=== PATIENT | female | born 1960 | race Caucasian/White ===

== ENCOUNTER → 2021-04-26 16:15 | Outpatient (CLI) | payer OTHER, SELFPAY ==
[2021-04-26 17:12] LABS: Add Manual Diff / Slide Review NO; Basophils Absolute Auto 100 /uL (0-100); Eosinophils Absolute Auto 200 /uL (0-450); Eosinophils Percent Auto 2.2 % (2-4); Hematocrit 39.3 % (36-46); Lymphocytes Absolute Auto 3600 /uL (1100-4500); Lymphocytes Percent Auto 46.7 % (25-40); Mean Corpuscular Hemoglobin 30.6 PG (26-34); Mean Corpuscular Volume 92.7 fL (80-100); Monocytes Absolute Auto 500 /uL (0-900); Monocytes Percent Auto 6.4 % (3-14); Neutrophils Absolute Auto 3400 /uL (1500-7000); Neutrophils Percent Auto 43.7 % (50-75); Platelet Count 306 X10^3/uL (150-400); Red Blood Cell Count 4.24 X10^6/uL (4.0-5.2); White Blood Cell Count 7.8 X10^3/uL (4.5-11.0)
[2021-04-26 17:36] LABS: Erythrocyte Sedimentation Rate 10 MM/HR (0-20)
[2021-04-26 17:56] LABS: Alanine Aminotransferase 16 IU/L (<35); Albumin 4.1 g/dL (3.5-5.0); Albumin Globulin Ratio 1.3 (1.0-2.8); Alkaline Phosphatase 70 U/L (38-126); Aspartate Aminotransferase 23 IU/L (14-36); BUN Creatinine Ratio 20.8 (6-22); Bilirubin Total 0.3 mg/dL (0.2-1.3); Blood Urea Nitrogen 15 mg/dL (7-17); C-Reactive Protein Quant < 0.5 mg/dL (<1.0); Calcium 10.2 mg/dL (8.4-10.2); Carbon Dioxide 24 mmol/L (22-32); Chloride 109 mmol/L (98-107); Estimated Glomerular Filt Rate > 60.0 mL/min (>60); Globulin 3.1 g/dL (1.7-4.1); Glucose 90 mg/dL (70-100); HEMOLYSIS < 15 (0-50); Sodium 140 mmol/L (137-145); Total Protein 7.2 g/dL (6.3-8.2)
[2021-04-26 18:24] LABS: Thyroid Stimulating Hormone 1.02 uIU/mL (0.47-4.68)
== END ==
PROVIDERS: PCP Student in an Organized Health Care Education/Training Program; Referring Provider Student in an Organized Health Care Education/Training Program; Visit Provider Student in an Organized Health Care Education/Training Program
DX: R21 Rash and other nonspecific skin eruption (principal)
CPT/HCPCS: 36415; 80053; 84443; 85025; 85651; 86140

== ENCOUNTER → 2022-10-18 12:17 | Outpatient (ROUT) | payer OTHER, SELFPAY ==
[2022-10-18 12:36] LABS: INR 0.9 (0.9-1.3); Prothrombin Time 10.5 SECONDS (10.1-12.7)
== END ==
PROVIDERS: PCP Registered Nurse; Visit Provider Registered Nurse
DX: R23.8 Other skin changes (principal)
CPT/HCPCS: 85610

== ENCOUNTER → 2022-12-26 14:00 | Outpatient (CLI) | payer BC, SELFPAY ==
--- NOTE | 2022-12-26 14:05 | DI.MG.S_ITS ---
BILATERAL DIGITAL SCREENING MAMMOGRAM 3D/2D WITH CAD: 12/26/2022 CLINICAL: Routine screening. Family history of breast cancer. Comparison is made to exams dated: 11/20/2021 mammogram, 11/20/2020 mammogram, and 11/15/2019 mammogram - Outside facility. Both breasts are heterogeneously dense, which may obscure small masses (category c / 51-75% glandular tissue). Current study was also evaluated with a Computer Aided Detection (CAD) system. There are benign calcifications in the right breast. There also are benign vascular calcifications in the left breast. Additionally, there are benign post operative findings in the left breast. No significant masses, calcifications, or other findings are seen in either breast. There has been no significant interval change. IMPRESSION: BENIGN There is no mammographic evidence of malignancy. A 1 year screening mammogram is recommended. Based on the Tyrer Cuzick model (a risk assessment model) the patient's lifetime risk is 18.6% and her 10 year risk is 8.1%. According to the ACR, ACS, and NCCN guidelines, an annual breast MRI exam along with mammogram is recommended if the patient's lifetime risk is 20% or greater. This exam was interpreted at Station ID: [id number]. NOTE: For mammograms, a report in lay terms will be sent to the patient. Approximately 15% of breast malignancies will not be visualized mammographically. In the management of a palpable breast mass, a negative mammogram must not discourage biopsy of a clinically suspicious lesion. Electronically Signed By: Jennifer mckeon/emelia:12/26/2022 15:07:01 letter sent: Normal Exam ACR BI-RADS Category 2: Benign Finding(s) 3342F
== END ==
PROVIDERS: PCP Registered Nurse; Referring Provider Registered Nurse; Visit Provider Registered Nurse
DX: Z12.31 Encounter for screening mammogram for malignant neoplasm of breast (principal)
CPT/HCPCS: 77063; 77067

== ENCOUNTER → 2023-07-22 14:53 | Outpatient (CLI) | payer BC, SELFPAY ==
--- NOTE | 2023-07-22 | DI.US.S_ITS ---
PROCEDURE: US PELVIC COMPLETE INDICATIONS: POST MENOPAUSAL BLEEDING TECHNIQUE: Real-time scanning was performed of the pelvic organs, with image documentation. Additional endovaginal scanning was necessary due to incomplete visualization of the adnexal and endometrial structures by transabdominal scanning. COMPARISON: None. FINDINGS: Uterus: Uterus is anteverted and normal in size at 8.6 x 4.6 x 5.7 cm. The myometrium is heterogenous. The endometrium measures 4 mm combined thickness. Left posterior intramural fibroid measures 1.9 x 1.8 x 1.7 cm. Left posterior intramural fibroid measures 1.3 x 1.4 x 1.3 cm. Right anterior intramural fibroid measures 1.0 x 0.9 x 1.0 cm. Ovaries: The right ovary measures 1.7 x 1.6 x 1.0 cm, with a calculated ovarian volume of 0.5 cc. The left ovary measures 1.9 x 0.9 x 1.0 cm, with a calculated ovarian volume of 0.9 cc. The ovaries have a normal sonographic appearance. Less than 12 follicles can be seen in each ovary. No adnexal masses are seen. Other: No pathologic free abdominal or pelvic fluid. IMPRESSION: Uterine fibroids. Normal endometrial thickness. Approved by: Kashif Chandra M.D. on 07/23/2023 at 17:48
== END ==
PROVIDERS: PCP Registered Nurse; Referring Provider Registered Nurse; Visit Provider Registered Nurse
DX: N95.0 Postmenopausal bleeding (principal); D25.1 Intramural leiomyoma of uterus
CPT/HCPCS: 76830; 76856; 93976

== ENCOUNTER → 2023-09-02 10:24 | Outpatient (CLI) | payer BC, SELFPAY | PROVIDERS: PCP Registered Nurse; Visit Provider Obstetrics & Gynecology | DX: R30.0 Dysuria (principal) | CPT/HCPCS: 87077; 87086; 87186 ==

== ENCOUNTER → 2024-01-13 10:51 | Outpatient (CLI) | payer BC, SELFPAY ==
--- NOTE | 2024-01-13 | DI.MG.S_ITS ---
BILATERAL DIGITAL SCREENING MAMMOGRAM 3D/2D WITH CAD: 01/13/2024 CLINICAL: Routine screening. Family history of breast cancer. Comparison is made to exams dated: 12/26/2022 mammogram - [facility], 11/20/2021 mammogram, and 11/20/2020 mammogram - Outside facility. Both breasts are heterogeneously dense, which may obscure small masses (category c / 51-75% glandular tissue). Current study was also evaluated with a Computer Aided Detection (CAD) system. There are benign calcifications in the right breast. There also are benign vascular calcifications in the left breast. Additionally, there are benign post operative findings in the left breast. No significant masses, calcifications, or other findings are seen in either breast. There has been no significant interval change. IMPRESSION: BENIGN There is no mammographic evidence of malignancy. A 1 year screening mammogram is recommended. Based on the Tyrer Cuzick model (a risk assessment model) the patient's lifetime risk is 18.1% and her 10 year risk is 8.1%. According to the ACR, ACS, and NCCN guidelines, an annual breast MRI exam along with mammogram is recommended if the patient's lifetime risk is 20% or greater. This exam was interpreted at Station ID: [id number]. NOTE: For mammograms, a report in lay terms will be sent to the patient. Approximately 15% of breast malignancies will not be visualized mammographically. In the management of a palpable breast mass, a negative mammogram must not discourage biopsy of a clinically suspicious lesion. Electronically Signed By: Jennifer mckeon/emelia:01/13/2024 16:23:35 letter sent: Normal Exam ACR BI-RADS Category 2: Benign Finding(s) 3342F
== END ==
LOC: MAMMO 10:53
PROVIDERS: PCP Registered Nurse; Referring Provider Registered Nurse; Visit Provider Registered Nurse
DX: Z12.31 Encounter for screening mammogram for malignant neoplasm of breast (principal); Z80.3 Family history of malignant neoplasm of breast; R92.333 Mammographic heterogeneous density, bilateral breasts
CPT/HCPCS: 77063; 77067

== ENCOUNTER 2024-06-08 13:10 | Observation (INO) | payer BC, SELFPAY ==
[2024-06-08] VITALS (15 sets, daily range): BP systolic 136–183; BP diastolic 70–111; PULSE 45–67; RESP 14–21; TEMP 36.8–37.2; O2SAT 92–99; BMI 29.9
--- NOTE | 2024-06-08 13:26 | EKG_ITS ---
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 Electronically Signed On 06-08-2024 14:38:02 PDT by Himanshu Alvares
--- NOTE | 2024-06-08 13:26 | DI.RAD.S_ITS ---
PROCEDURE: XR CHEST 1V INDICATIONS: chest pain TECHNIQUE: One view of the chest was acquired. COMPARISON: None. FINDINGS: Surgical changes and devices: None. Lungs and pleura: Low lung volumes. Possible mild left base opacity. No drainable effusions. Mediastinum: Heart size is at the upper limit of normal. Bones and chest wall: Rightward thoracolumbar scoliosis IMPRESSION: Low lung volumes. Possible mild left lung base opacity representing airspace disease or atelectasis. Consider future imaging surveillance to assess for resolution. Dictated by: Frank Gray M.D. on 06/08/2024 at 13:50 Approved by: Frank Gray M.D. on 06/08/2024 at 13:50
[2024-06-08] MEDS: ASPIRIN 81 MG CHEW TAB 324 MG PO (14:14)
[2024-06-08 14:26] LABS: Add Manual Diff / Slide Review NO; Basophils Absolute Auto 100 /uL (0-100); Basophils Percent Auto 1.2 % (0-2); Eosinophils Absolute Auto 100 /uL (0-450); Eosinophils Percent Auto 1.9 % (2-4); Hematocrit 40.2 % (36-46); Hemoglobin 13.7 g/dL (12.0-16.0); Lymphocytes Absolute Auto 3200 /uL (1100-4500); Lymphocytes Percent Auto 51.3 % (25-40); Mean Corpuscular HGB Conc 34.2 % (30-36); Mean Corpuscular Hemoglobin 31.2 PG (26-34); Mean Corpuscular Volume 91.4 fL (80-100); Monocytes Absolute Auto 400 /uL (0-900); Monocytes Percent Auto 6.2 % (3-14); Neutrophils Absolute Auto 2400 /uL (1500-7000); Neutrophils Percent Auto 39.4 % (50-75); Platelet Count 292 X10^3/uL (150-400); Red Cell Distribution Width 12.8 % (11.6-14.8); White Blood Cell Count 6.1 X10^3/uL (4.5-11.0)
[2024-06-08 14:35] LABS: Prothrombin Time 11.5 SECONDS (9.4-12.5)
[2024-06-08 14:37] LABS: PTT Partial Thromboplastin Tim 42 SECONDS (25.1-36.5)
[2024-06-08 14:54] LABS: Alanine Aminotransferase 25 IU/L (<35); Albumin 4.5 g/dL (3.5-5.0); Albumin Globulin Ratio 1.5 (1.0-2.8); Alkaline Phosphatase 100 U/L (38-126); Aspartate Aminotransferase 26 IU/L (14-36); BUN Creatinine Ratio 16.1 (6-22); Bilirubin Total 0.8 mg/dL (0.2-1.3); Blood Urea Nitrogen 10 mg/dL (7-17); Calcium 10.2 mg/dL (8.4-10.2); Carbon Dioxide 25 mmol/L (22-32); Chloride 107 mmol/L (98-107); Creatine Kinase 55 U/L (30-135); Estimated Glomerular Filt Rate > 60 mL/min (>60); Glucose 96 mg/dL (80-110); HEMOLYSIS < 15 (0-50); Lipase 77 U/L (23-300); Magnesium 2.1 mg/dL (1.6-2.3); Potassium 3.9 mmol/L (3.4-5.1); Sodium 141 mmol/L (137-145); Total Protein 7.5 g/dL (6.3-8.2)
[2024-06-08 15:03] LABS: NT-proBNP (BNP-Adult 18+) 40 pg/mL (<125)
[2024-06-08 15:09] LABS: Troponin I < 0.012 ng/mL (0.01-0.034)
--- NOTE | 2024-06-08 16:19 | ED_ITS ---
HPI - Chest Pain General Chief Complaint: Chest Pain Stated Complaint: from [facility] IV for BP meds Time Seen by Provider: 06/08/24 13:15 Source: patient Mode of arrival: Ambulatory Limitations: no limitations History of Present Illness HPI narrative: Patient is a 63-year-old female. History of hypertension and high cholesterol. Recent diagnosis of diabetes started on medication. Was seeing her primary doctor today because of some elevated blood pressure. She actually lives in [facility] and comes to the [facility] to see her doctors and also her kids. She states she has been checking her blood pressure recently they have been elevated in the 160s to 190s range. She also reports that she has had some chest pressure specifically with exertion. States it is not every time that she exerts herself but occasionally. She was currently not having discomfort. She talked with her primary doctor today in the office. Her blood pressure was elevated. Given her symptoms she was sent to the emergency department for further evaluation. Related Data Home Medications Medication Instructions Recorded Confirmed atorvastatin 10 mg tablet 10 mg PO DAILY 09/02/23 09/02/23 citalopram 20 mg tablet 20 mg PO DAILY 09/02/23 09/02/23 Previous Rx's Medication Instructions Recorded estradiol 2 mg (7.5 mcg/24 hour) 1 vag ring vaginal [id number] #1 ea 09/02/23 vaginal ring (Estring) Allergies Allergy/AdvReac Type Severity Reaction Status Date / Time No Known Drug Allergies Allergy Unverified 09/02/23 09:29 Review of Systems Review of Systems ROS Unobtainable: All systems reviewed & are unremarkable except as noted in HPI and below Patient History Medical History Bilharzia Measles Malaria Hepatitis Chicken pox Family history of myelodysplasia of spinal cord Anemia (~1981) Fibroids (~1987) Hemorrhoid (~1997) Diabetes mellitus (~2000) Surgical History (Updated 10/05/23 @ 18:39 by Ansley Machado) History of lumpectomy History of myomectomy Family History (Updated 10/05/23 @ 18:40 by Ansley Machado) Mother Cancer Social History Smoking Status: Never smoker Smoking Status: Never smoker Substance Use Type: does not use Exam Initial Vital Signs Initial Vital Signs: Vital Signs Temperature 98.3 F 06/08/24 13:19 Pulse Rate 53 L 06/08/24 13:19 Respiratory Rate 18 06/08/24 13:19 Blood Pressure 171/77 H 06/08/24 13:19 Pulse Oximetry 97 06/08/24 13:19 Oxygen Delivery Method Room Air 06/08/24 13:19 Const General: cooperative and No ill appearing HENMT Head: normal to inspection and normocephalic Resp Effort & Inspection: normal respiratory effort Auscultation: clear to auscultation bilaterally Cardio Rate: regular rate Rhythm: regular rhythm GI Inspection: normal to inspection and non-distended Skin General: no rashes or lesions noted Neuro General: patient alert, patient awake and moves all extremities Extrem General: capillary refill normal Scores HEART Score Heart Score history: Moderately Suspicious Heart Score EKG: Non-Specific repolarization disturbance Heart Score Age: 45-64 years old Heart Score risk factors: > 3 risk factors or hx of atherosclerotic disease Heart Score troponin: < or = to normal limit Heart Score Total: 5 Course Orders Ordered: ED Orders 06/08/24 13:26 XR chest 1V Stat EKG-12 Lead Stat 06/08/24 14:15 Complete Blood Count AUTO DIFF Stat Comprehensive Metabolic Panel Stat Lipase Stat Magnesium Stat NT-proBNP (BNP-Adult 18+) Stat PTT Partial Thromboplastin Avinash Stat Prothrombin Time INR Stat Troponin & CK Cardiac Panel Stat 06/08/24 17:14 Consult to Physician Stat Discontinued Medications Aspirin (Aspirin 81 Mg Chew Tab) 324 mg PO NOW ONE Stop: 06/08/24 13:27 Last Admin: 06/08/24 14:14 Dose: 324 mg Documented By: CANDELARIA Vital Signs Vital signs: Vital Signs - 8 hr 06/08/24 13:19 06/08/24 14:27 06/08/24 15:12 Temperature 98.3 F Pulse Rate 53 L 50 L 64 Respiratory Rate 18 16 Blood Pressure 171/77 H 167/80 H Pulse Oximetry 97 99 97 Oxygen Delivery Method Room Air Room Air 06/08/24 15:13 06/08/24 15:13 06/08/24 15:30 Temperature Pulse Rate 59 L 48 L Respiratory Rate 17 18 Blood Pressure 183/85 H Pulse Oximetry 98 94 Oxygen Delivery Method 06/08/24 15:31 06/08/24 15:31 06/08/24 16:00 Temperature Pulse Rate 46 L 45 L Respiratory Rate 20 14 Blood Pressure 153/70 H Pulse Oximetry 95 95 Oxygen Delivery Method Room Air 06/08/24 16:01 06/08/24 16:01 06/08/24 16:30 Temperature Pulse Rate 48 L 52 L Respiratory Rate 14 18 Blood Pressure 139/79 Pulse Oximetry 96 94 Oxygen Delivery Method 06/08/24 16:31 06/08/24 16:31 06/08/24 17:00 Temperature Pulse Rate 59 L 51 L Respiratory Rate 18 17 Blood Pressure 158/85 H Pulse Oximetry 94 Oxygen Delivery Method 06/08/24 17:01 06/08/24 17:01 Temperature Pulse Rate 52 L Respiratory Rate 19 Blood Pressure 136/90 Pulse Oximetry 94 Oxygen Delivery Method MDM - Chest Pain Lab Data Attestation: I reviewed the patient's lab results. 06/08/24 14:15 06/08/24 14:15 Labs: Lab Results 06/08/24 Range/Units 14:15 WBC 6.1 (4.5-11.0) X10^3/uL RBC 4.40 (4.0-5.2) X10^6/uL Hgb 13.7 (12.0-16.0) g/dL Hct 40.2 (36-46) % MCV 91.4 (80-100) fL MCH 31.2 (26-34) PG MCHC 34.2 (30-36) % RDW 12.8 (11.6-14.8) % Plt Count 292 (150-400) X10^3/uL Neut % (Auto) 39.4 L (50-75) % Lymph % (Auto) 51.3 H (25-40) % Knott % (Auto) 6.2 (3-14) % Eos % (Auto) 1.9 L (2-4) % Baso % (Auto) 1.2 (0-2) % Neut # (Auto) 2400 (0162-5053) /uL Lymph # (Auto) 3200 (4505-9044) /uL Knott # (Auto) 400 (0-900) /uL Eos # (Auto) 100 (0-450) /uL Baso # (Auto) 100 (0-100) /uL PT 11.5 (9.4-12.5) SECONDS INR 1.0 (0.9-1.3) APTT 42 H (25.1-36.5) SECONDS Sodium 141 (137-145) mmol/L Potassium 3.9 (3.4-5.1) mmol/L Chloride 107 (98-107) mmol/L Carbon Dioxide 25 (22-32) mmol/L BUN 10 (7-17) mg/dL Creatinine 0.62 (0.52-1.04) mg/dL Estimated GFR > 60 (>60) mL/min BUN/Creatinine Ratio 16.1 (6-22) Glucose 96 (80-110) mg/dL Calcium 10.2 (8.4-10.2) mg/dL Magnesium 2.1 (1.6-2.3) mg/dL Total Bilirubin 0.8 (0.2-1.3) mg/dL AST 26 (14-36) IU/L ALT 25 (<35) IU/L Alkaline Phosphatase 100 (38-126) U/L Total Creatine Kinase 55 (30-135) U/L Troponin I < 0.012 (0.01-0.034) ng/mL NT-Pro-B Natriuret Pep 40 (<125) pg/mL Total Protein 7.5 (6.3-8.2) g/dL Albumin 4.5 (3.5-5.0) g/dL Globulin 3.0 (1.7-4.1) g/dL Albumin/Globulin Ratio 1.5 (1.0-2.8) Lipase 77 (23-300) U/L Imaging Data Chest x-ray: Radiologist's Impression: PROCEDURE: XR CHEST 1V INDICATIONS: chest pain TECHNIQUE: One view of the chest was acquired. COMPARISON: None. FINDINGS: Surgical changes and devices: None. Lungs and pleura: Low lung volumes. Possible mild left base opacity. No drainable effusions. Mediastinum: Heart size is at the upper limit of normal. Bones and chest wall: Rightward thoracolumbar scoliosis IMPRESSION: Low lung volumes. Possible mild left lung base opacity representing airspace disease or atelectasis. Consider future imaging surveillance to assess for resolution. ECG Data Interpretation: Sinus bradycardia Ventricular rate of 56 Normal axis Normal QRS Nonspecific ST T wave changes MDM Narrative Medical decision making narrative: Asymptomatic. Chest x-ray is unremarkable. Nonspecific changes on the EKG. Negative troponin. Heart score 5. Plan will be to admit to the hospital for further risk stratification testing. Discussed the case with Dr. Arellano he was on-call for the patient's primary doctor who will admit for further evaluation. Patient is in agreement with admission to the hospital. Discharge Plan Departure Patient Disposition: Admitted as Observation Clinical Impression: Chest pain, Hypertension Admit Date/Time: 06/08/24 17:15 Admit Provider: Dontae Arellano
--- NOTE | 2024-06-08 18:11 | PC.NURSE ---
Addendum entered by Jovany Correa R.N. 06/08/24 19:28: Updated patient that she can eat tonight (no caffeine), but nothing to eat or drink after midnight. Patient up in chair without complaints. at bedside, production supervisor off shift RN assuming care. Original Note: Patient brought from ER to room 212 via WC. Patient oriented to room and call light. Patient declines hospital gown at this time, and would like to sit up in recliner chair. Patient alert and oriented, denies pain. Sinus bradycardia on telemetry. Dr. Arellano paged to notify him his patient has arrived to room. A waiting orders. Call light within reach, patient moving around independently in room without complaint.
--- NOTE | 2024-06-08 19:04 | DI.ECHO.S_ITS ---
[facility]---------+ [facility] : : [address] : : [place] : : [id number] : : Phone: [phone] Echocardiogram Report + + :Name: XIOMARA HANSON Study Date: 06/09/2024 Height: 65 in : [facility] Reading[facility]: Weight: 180 lb: : Gender: Female BSA: 1.9 m2 : :: 1960 Age: 63 yrs : :Reason For Study: EXERTIONAL CHEST PAIN : :Ordering Physician: KYLIE, : :NATALIIA Clayton Performed By: Priti Wray : :Referring: NATALIIA ESPINAL : + + Interpretation Summary Sinus bradycardia. Normal LV size and wall thickness. Normal wall motion and LV systolic function. Ejection fraction is 55-60%. Normal chamber sizes. No significant valvular abnormalities. The transverse and descending portions of the aorta are characterized by significant atherosclerotic plaque. No prior study available for comparison. Procedure: A two-dimensional transthoracic echocardiogram with color flow and Doppler was performed. The study quality was technically adequate. There is no prior echocardiogram noted for this patient. The patient was in sinus bradycardia with heart rates between 53-60 bpm during the exam. Left Ventricle: The left ventricle is normal in size and wall thickness. The ejection fraction is estimated to be 50-55%. Right Ventricle: The right ventricle is normal in size and function. Atria: The left atrial size is normal. Right atrial size is normal. There is no Doppler evidence for an interatrial shunt. Mitral Valve: The mitral valve is normal in structure and function. There is trace mitral regurgitation. Aortic Valve: The aortic valve is trileaflet. The aortic valve opens well. There is no aortic valve stenosis. No aortic regurgitation is present. Tricuspid Valve: The tricuspid valve is normal in structure and function. There is trace tricuspid regurgitation. The right ventricular systolic pressure is estimated to be at least 23 mmHg based on an estimated right atrial pressure of 3 mm Hg. Pulmonic Valve: The pulmonic valve leaflets are thin and pliable; valve motion is normal. There is no pulmonic valvular regurgitation. Great Vessels: The aortic root is normal size. The dimensions of the ascending aorta are normal. The IVC is of normal diameter and collapses greater than 50% with a sniff. This suggests a low right atrial pressure of 3 mm Hg. Pericardium/ Pleura There is no pericardial effusion. There is no pleural effusion. MMode/2D Measurements & Calculations LVIDd: 5.2 cm LVOT diam: 2.1 cm LVIDs: 3.5 cm Ao root diam: 3.1 cm FS: 32.3 % asc Aorta Diam: 3.4 cm EPSS: 1.4 cm Ao Arch Diam (Prox Trans): 2.9 cm IVSd: 0.87 cm LVPWd: 0.69 cm LV leslie. diameter/BSA (cm/m^2): 2.8 LV sys. diameter/BSA (cm/m^2): 1.9 LA A2 area: 17.0 cm2 RA long axis: 5.1 cm LA A4 area: 14.3 cm2 RA area: 16.3 cm2 LA length (vol): 4.6 cm RA vol: 44.1 ml LA vol: 45.2 ml RA : 23.3 ml/m2 LA vol index: 23.9 ml/m2 IVC diam: 0.92 cm RVD1 (basal): 3.3 cm TAPSE: 1.7 cm Doppler Measurements & Calculations Ao V2 max: 98.7 cm/sec LVOT Max Didier: 83.9 cm/sec Ao V2 mean: 69.4 cm/sec LV V1 max P.8 mmHg Ao max P.9 mmHg LV V1 VTI: 19.4 cm Ao mean P.1 mmHg LOTTIE(I,D): 3.6 cm2 Ao V2 VTI: 19.0 cm LOTTIE(V,D): 3.0 cm2 sev ratio: 1.0 LOTTIE indexed to BSA (cm^2/m^2): 1.9 MV E max didier: 66.5 cm/sec TR max didier: 225.4 cm/sec MV A max didier: 47.6 cm/sec TR max P.3 mmHg MV E/A: 1.4 PA V2 max: 90.4 cm/sec Med Peak E' Didier: 7.9 cm/sec PA V2 mean: 68.8 cm/sec E/E' med: 8.4 PA mean P.1 mmHg Lat Peak E' Didier: 9.5 cm/sec PA pr(Accel): 48.2 mmHg E/E' lat: 7.0 E/e' average: 7.7 MV dec time: 0.17 sec SV([facility]): 69.2 ml Electronically signed by: Angelica Burns M.D. on Reading Physician:06/09/2024 09:54 AM
--- NOTE | 2024-06-08 19:04 | DI.NM.S_ITS ---
PROCEDURE: NM EXERCISE TREADMILL NON NUC COMPARISON: None. INDICATIONS: Exertional chest pain FINDINGS: The patient exercised for 8 minutes and 46 seconds reaching 93% of maximum predicted heart rate. Borderline hypertensive response to exercise (max BP 200/98mmHg). 8.8 METs, BERTIN -32%. Non-specific ST changes at rest and mild horizontal ST depressions in the inferior and anterolateral leads, suggesting probably ischemia. Patient had minimal chest pain that started around 2:30PM that did not intensify or affect patient's ability to exercise. No significant ectopy present. IMPRESSION: Probably abnormal treadmill ECG only stress test with good exercise tolerance (8.8 METs, BERTIN -32%). Non-specific ST changes at rest and mild horizontal ST depressions in the inferior and anterolateral leads, suggesting probably ischemia. Patient had minimal chest pain that started around 2:30PM that did not intensify or affect patient's ability to exercise. Correlate clinically to consider treadmill nuclear stress or cardiology consult. Dictated by: Nany Olivier MD on 06/09/2024 at 13:05 Approved by: Nany Olivier MD on 06/09/2024 at 13:12
[2024-06-08 19:51] LABS: Troponin I < 0.012 ng/mL (0.01-0.034)
[2024-06-08] MEDS: METFORMIN XR 500 MG TABLET 1000 MG PO (21:50)
[2024-06-09] VITALS: BP 128/69; PULSE 57; RESP 19; O2SAT 99
[2024-06-09 06:00] VITALS: BP 136/77; PULSE 54; RESP 18; O2SAT 95
[2024-06-09 06:19] LABS: Troponin I < 0.012 ng/mL (0.01-0.034)
[2024-06-09 09:31] VITALS: BP 121/62; PULSE 60; RESP 17; TEMP 37.1; O2SAT 94
[2024-06-09] MEDS: CITALOPRAM 10 MG TABLET 20 MG PO (10:20)
[2024-06-09 10:21] VITALS: BP 121/62; PULSE 60
[2024-06-09] MEDS: ATORVASTATIN 20 MG TABLET PO (10:21)
[2024-06-09] MEDS: ACETAMINOPHEN 325 MG TABLET 650 MG PO (10:21)
[2024-06-09] MEDS: LOSARTAN 25 MG TABLET PO ×2 (10:21→15:02)
[2024-06-09 12:00] VITALS: BP 169/83; PULSE 76; RESP 16; TEMP 37.2; O2SAT 93
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
--- NOTE | 2024-06-09 13:58 | EKG_ITS ---
[address] [address] Test Date: 2024-06-09 Pat Name: Latasha Rock Department: 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
[2024-06-09 15:02] VITALS: BP 169/83; PULSE 76
--- NOTE | 2024-06-09 15:15 | CM.DANOTE ---
DCP Cont. Reviewed EMR and team rounds for status updates. Did not meet with pt at bedside due to triaging needs. Pt lives independently at baseline, lives primarily in [place], however comes to [place] to visit her family and see her doctors. She will d/c back to her family's home, they will also provide for transportation. No needs have been identified for assistance at this time. Payor: [facility] Out of [facility] PCP: Dr. Flory Sinclair Pt is a 63 year-old F who was sent to the ED from her PCP's office visit after she was found to have high blood pressure and chest tightness with exertion. She has a PMH of hypertension and high cholesterol, as well as a new diabetes dx. She was asymptomatic upon presenting to the ED, chest x-ray was negative, and labs were unremarkable. Pt was placed in OBS for further cardiac monitoring, and a stress test was ordered, this was completed today. Unfortunately, the incorrect stress test was used, they will repeat again tomorrow (06/10). If stable, she will d/c home w/family. DCP will continue to follow and assist with any final d/c recommendations or needs. Discharge Planning/Care Management CM Discharge Assessment Start: 06/09/24 15:13 Freq: Status: Active Protocol: Document 06/09/24 15:13 DPL (Rec: 06/09/24 15:15 DPL [id number]) Discharge Planning Assessment Assigned Low Vision Therapist COLTON Patterson Advance Directives? No History Provided By Patient,Medical Record Has Patient been admitted in last 30 No days? Prior Living Arrangements House Household Members spouse Type of transporation used prior to Drives own vehicle admit Independent with ADL's Yes Is patient alert and oriented? Yes Caregiver for Another No Comment N/A Comment No anticipated d/c needs at this time. Barriers to Discharge No Discharge Plan Home Transportation Arrangement Spouse Referrals Initiated None needed Whiteboard Updated in Patient Room with Yes name and ext. # of Low Vision Therapist Review Status In Process Please Provide Date Initial DC 06/09/24 Assessment Was Performed
--- NOTE | 2024-06-09 18:33 | PC.NURSE ---
Pt discharged home at 1800, ambulated off floor accompanied by hospital staff. IV removed, tele d/c'd, discharge teaching completed including new medications, follow up appointments and worsening symptoms. Patient left the floor with all belongings.
== END 2024-06-09 18:40 | disposition home or self-care (01) ==
LOC: ED 17:14 → AC 17:16
PROVIDERS: Admitting Provider Family Medicine; Emergency Provider Emergency Medicine; PCP Registered Nurse; Referring Provider Emergency Medicine; Visit Provider Family Medicine
DX: R07.9 Chest pain, unspecified (principal); R00.2 Palpitations; E11.9 Type 2 diabetes mellitus without complications; I10 Essential (primary) hypertension; E78.5 Hyperlipidemia, unspecified
CPT/HCPCS: 36415; 71045; 80053; 82550; 83690; 83735; 83880; 84484; 85025; 85610; 85730; 93005; 93017; 93306; 99284; G0378

== ENCOUNTER → 2025-03-01 15:48 | Outpatient (CLI) | payer BC, SELFPAY ==
[2024-06-08 17:31] VITALS: BMI 29.9
--- NOTE | 2025-03-01 15:51 | DI.MG.S_ITS ---
MM screening mammo BI: 03/01/2025. BI-RADS: 2 CLINICAL: 64-year old female for bilateral screening mammogram. Tyrer-Cuzick lifetime risk of 7.7%. No personal or first-degree family history of breast cancer. The patient had a prior right breast biopsy. PRIOR EXAMS 01/13/2024, 12/26/2022. MAMMOGRAPHY TECHNIQUE: 2D and 3D (tomosynthesis) digital mammographic views obtained, with additional images as needed for full coverage. Current study was also evaluated with a Computer Aided Detection (CAD) system. DENSITY C. The breasts are heterogeneously dense, which may obscure small masses. MAMMOGRAPHY FINDINGS Right: Benign-appearing calcification noted on the right. There are no suspicious masses, calcifications, or other findings in the breast. No significant change from comparison. Left: Benign-appearing calcification and post-surgical changes noted on the left. There are no suspicious masses, calcifications, or other findings in the breast. No significant change from comparison. IMPRESSION: * No evidence of malignancy with benign findings. RECOMMENDATIONS Bilateral * Annual screening mammography. OVERALL ASSESSMENT CATEGORY BI-RADS-2: Benign. The [employer] recommends annual screening mammography beginning at age 40 for women with average risk of breast cancer. ELECTRONICALLY SIGNED: Jennifer Armstrong M.D. on 03/02/2025 at 09:16:22 AM PT Interpreting Station ID: [id number]
== END ==
PROVIDERS: PCP Registered Nurse; Referring Provider Registered Nurse; Visit Provider Registered Nurse
DX: Z12.31 Encounter for screening mammogram for malignant neoplasm of breast (principal); R92.333 Mammographic heterogeneous density, bilateral breasts
CPT/HCPCS: 77063; 77067